=== PATIENT | female | born 1985 | race Hispanic/Latino ===

== ENCOUNTER 2019-12-19 10:43 | Inpatient (IN) | payer SELFPAY ==
[~2019-12-19] VITALS: Ht 170.2 cm; Wt 98.4 kg
[2019-12-19] MEDS ORDERED: PHARMACY COMMUNICATION MISC SCH (12:15)
[2019-12-19 12:42] VITALS: BP 119/78
[2019-12-19] MEDS: OXYTOCIN-LR 20 UNITS/1000 ML 1,000 ML IV SCH (13:10)
[2019-12-19] MEDS ORDERED: EPHEDRINE SULFATE 50 MG/ML AMPULE IVP PRN (16:45)
[2019-12-19] MEDS ORDERED: LACTATED RINGERS 500 ML 500 ML IV PRN (16:45)
[2019-12-19] MEDS ORDERED: ROPIVACAINE 0.2% 100ML VIAL 100 ML EP SCH (16:45)
[2019-12-19] MEDS ORDERED: PROMETHAZINE HCL 25 MG/ML 1ML AMPULE IM PRN (16:45)
[2019-12-19] MEDS ORDERED: NALOXONE HCL 0.4 MG/1 ML ML IV PRN (16:45)
[2019-12-19] MEDS ORDERED: MEPERIDINE-PF 50 MG/ML SYG IVP PRN (16:45)
[2019-12-19] MEDS: LACTATED RINGERS 1000ML 1,000 ML IV PRN ×2 (21:02→22:25)
[2019-12-20] MEDS: OXYTOCIN-LR 20 UNITS/1000 ML 1,000 ML IV SCH (04:04)
[2019-12-20] MEDS ORDERED: LIDOCAINE HCL 1% 20 ML VIAL ONE (11:59)
[2019-12-20] MEDS ORDERED: METHYLERGONOVINE MALEATE 0.2 MG/1 ML ML ONE (12:38)
[2019-12-20] MEDS ORDERED: OXYTOCIN 10 USP UNITS/ML ONE (12:41)
[2019-12-20] MEDS ORDERED: MISOPROSTOL 200 MCG TABLET ONE (12:41)
[2019-12-20] MEDS ORDERED: DIPH,PERTUSS(ACELL),TET VAC/PF 0.5 ML VIAL IM PRN (13:15)
[2019-12-20] MEDS ORDERED: LANOLIN 30GM OINTMENT TP PRN (13:15)
[2019-12-20] MEDS ORDERED: BENZOCAINE/LANOLIN/ALOE VERA 60 ML AEROSOL TP PRN (13:15)
[2019-12-20] MEDS ORDERED: WITCH HAZEL 1 PAD TP PRN (13:15)
[2019-12-20] MEDS ORDERED: ACETAMINOPHEN-CODEINE 300/30MG TAB PO PRN (13:15)
[2019-12-20] MEDS ORDERED: MEASLES/MUMPS/RUBELLA VACCINE, LIVE 0.5 ML/VIAL SQ PRN (13:15)
[2019-12-20] MEDS ORDERED: ACETAMINOPHEN 325 MG TAB PO PRN (13:15)
[2019-12-20 15:01] VITALS: BP 140/86
[2019-12-20] MEDS ORDERED: PREN-154 PO (16:42)
[2019-12-20] MEDS: IBUPROFEN 600 MG TABLET PO PRN (16:47)
[2019-12-20 19:30] VITALS: BP 114/61
[2019-12-20] MEDS ORDERED: DOCUSATE SODIUM 100 MG CAP PO SCH (21:00)
[2019-12-20 23:45] VITALS: BP 107/49
[2019-12-21 03:48] VITALS: BP 119/59
[2019-12-21 07:15] VITALS: BP 103/60
--- NOTE | 2019-12-21 07:15 | NUR ---
PATIENT ASSESSED AND STATES HAVING PAIN OF 2 BUT INDICATED WOULD WAIT UNTIL AFTER BREAKFAST FOR A.M. MEDS. PATIENT HAVING UTERINE CRAMPING WITH . BONDING WELL WITH AND LATCHING WELL. REINFORCED USE OF LANOLIN CREAM TO PREVENT DRYNESS AND SORENESS TO NIPPLES AND VERBALIZED UNDERSTANDING. FUNDUS IS FIRM AND LOCHIA IS SMALL. PATIENT HAS NO IV AND WAITING FOR DISCHARGE TODAY AND EXPLAINED THAT BABY COULD NOT BE DISCHARGED UNTIL 24 HOURS AFTER DELIVERY AND WAS OKAY WITH WAITING.
[2019-12-21] MEDS: IBUPROFEN 600 MG TABLET PO PRN (08:27)
--- NOTE | 2019-12-21 10:00 | NUR ---
PATIENT WAS GIVEN DISCHARGE INSTRUCTIONS AND SCRIPT FOR PAIN MANAGEMENT AT HOME. VERBALIZED UNDERSTANDING INSTRUCTIONS GIVEN AND DOSAGE AND FREQUENCY OF MEDICATIONS. ER SYMPTOMS GIVEN TO PATIENT AND VERBALIZED UNDERSTANDING. PATIENT INSTRUCTED OF DISCHARGE ONCE BABY IS DISCHARGED.
[2019-12-21 12:00] VITALS: BP 107/68
[2019-12-21 16:00] VITALS: BP 107/60
--- NOTE | 2019-12-21 16:00 | NUR ---
PATIENT IS STABLE AND VITAL SIGNS STABLE INDICATED WAITING ON HER MOTHER TO COME BACK AND PICK HER AND BABY UP.
--- NOTE | 2019-12-21 16:20 | NUR ---
PATIENT WAS TAKEN VIA W/C TO FAMILY [facility]HICLE AND WAS DISCHARGED TO HER MOTHER WITH BABY IN STABLE CONDITION. PATIENT DENIES ANY PAIN OR PROBLEMS.
== END 2019-12-21 16:20 | disposition home or self-care (01) | DRG 807 ==
LOC: EDH 10:43 → LDH 10:44 → OBSVTOIN 10:44 → WSH 12-20 14:59
PROVIDERS: ADMIT Obstetrics & Gynecology; ATTEND Obstetrics & Gynecology
PROC: 10E0XZZ Delivery of Products of Conception, External Approach (ICD-10-PCS; principal; 2019-12-20)
PROC: 0KQM0ZZ Repair Perineum Muscle, Open Approach (ICD-10-PCS; 2019-12-20)
PROC: 10907ZC Drainage of Amniotic Fluid, Therapeutic from Products of Conception, Via Natural or Artificial Opening (ICD-10-PCS; 2019-12-20)
PROC: 3E0234Z Introduction of Serum, Toxoid and Vaccine into Muscle, Percutaneous Approach (ICD-10-PCS; 2019-12-20)
PROC: 3E0134Z Introduction of Serum, Toxoid and Vaccine into Subcutaneous Tissue, Percutaneous Approach (ICD-10-PCS; 2019-12-20)
PROC: 3E0R3BZ Introduction of Anesthetic Agent into Spinal Canal, Percutaneous Approach (ICD-10-PCS; 2019-12-20)
PROC: 00HU33Z Insertion of Infusion Device into Spinal Canal, Percutaneous Approach (ICD-10-PCS; 2019-12-20)
DX: O77.0 Labor and delivery complicated by meconium in amniotic fluid (principal); Z37.0 Single live birth; Z3A.40 40 weeks gestation of pregnancy; Z23 Encounter for immunization; O70.1 Second degree perineal laceration during delivery; O62.2 Other uterine inertia; O99.214 Obesity complicating childbirth; E66.9 Obesity, unspecified
CPT/HCPCS: 36415; 76805; 80305; 81003; 85027; 86592; 86701; 86850; 86900; 86901; 87340; 87390; A4314; G0378; J2175; J2210; J2550; J2590; J2795; J7120